=== PATIENT | female | born 1955 | race Caucasian/White ===

== ENCOUNTER → 2022-02-26 11:22 | Outpatient (CLI) | payer BC, SELFPAY ==
--- NOTE | ~2022-02-26 | MM_ITS ---
EXAMINATION: MM screening santos BI w pili HISTORY: Screening TECHNIQUE: Craniocaudal and mediolateral oblique 3-D tomosynthesis images were obtained and synthetic 2-D images were generated. CAD analysis was submitted and interpreted. COMPARISON: No prior mammogram is available for comparison at this institution. BREAST PARENCHYMAL COMPOSITION: There are scattered areas of fibroglandular density. FINDINGS: There is no evidence of suspicious mass, calcification, or architectural distortion to sugg est malignancy in either breast. There has been no suspicious interval change. IMPRESSION: 1. No mammographic evidence of malignancy. 2. Recommend routine screening mammography in one year. BI-RADS Category 1: Negative Reviewed, dictated and finalized at location A. UNITY ASSISTANT
== END ==
PROVIDERS: PCP Family Medicine
DX: Z12.31 Encounter for screening mammogram for malignant neoplasm of breast (principal)
CPT/HCPCS: 77063; 77067

== ENCOUNTER → 2022-03-13 08:47 | Outpatient (CLI) | payer BC, SELFPAY ==
--- NOTE | ~2022-03-13 | DEXA_ITS ---
Bone Density Report Name: RILEY SNELL Age: 66 Sex: Female Ethnicity: White Date of : 1955 Indication: postmenopausal; screening for osteoporosis; height loss; Referring Provider: VALERIE MCKENZIE Study: Bone densitometry was performed. Exam Date: March 13, 2022 Accession number: [id number] Bone Density: Region BMD T-score Z-score Classification AP Spine (L1-L4) 0.966 -0.7 1.0 Normal Femoral Neck (Left) 0.792 -0.5 1.0 Normal Total Hip (Left) 1.062 1.0 2.2 Normal Femoral Neck (Right) 0.905 0.5 2.0 Normal Total Hip (Right) 1.069 1.0 2.3 Normal Total Hip Mean 1.066 1.0 2.3 Normal World Health Organization criteria for BMD impression classify patients as: Normal (T-score at or above -1.0), Osteopenia (T-score between -1.0 and -2.5), or Osteoporosis (T-score at or below -2.5). 10-year Fracture Risk: FRAX not reported because: All T-scores for Spine Total, Hip Total, Femoral Neck at or above -1.0 Clinical Information Provided by Patient: Has 3 or more alcoholic drinks per day Has used the following medications: Calcium Patient maximum height was 64 Menopause Age: 52 No regular weight bearing exercise Drinks caffeinated beverages Onset of menses at age 15 Number of children 2 Impression: The patient has normal bone mass. The patient has risk factors, including: excessive alcohol use. Discussion: BONE DENSITY IS ABOVE THE MINIMUM DESIRABLE LEVEL AT ALL SKELETAL SITES TESTED. This patient?s bone mineral density is above the minimum desirable level (T-score -1.0 or better) at all sites measured. The patient should follow a healthful lifestyle (good nutrition with adequate calcium and vitamin D, and appropriate weight-bearing exercise). Follow-Up: Consider repeating this study in 5 years or sooner if there is some new clinical indication. Reported by: [facility] on 03/13/2022 9:15:00 AM. Reviewed, dictated and finalized at location APreston GARCIA
== END ==
PROVIDERS: PCP Family Medicine; Visit Provider Family Medicine
DX: Z00.00 Encounter for general adult medical examination without abnormal findings (principal); Z13.820 Encounter for screening for osteoporosis; Z78.0 Asymptomatic menopausal state
CPT/HCPCS: 77080

== ENCOUNTER 2022-03-17 11:37 | Outpatient (CLI) | payer BC, SELFPAY ==
--- NOTE | ~2022-03-17 | XR_ITS ---
EXAMINATION: XR_RIBSBI_CR Exam Date/Time: 03/17/2022 11:42 PORCELAIN BUILDUP ASSISTANT HISTORY: fall 3 days ago, bilateral lower rib pain Comparison: None available. RESULT: Lines, tubes, and devices: None. Lungs and pleura: Senescent change. Biapical pleural thickening with pleural calcification. Cardiothymic silhouette: Unremarkable. Other: Nondisplaced right anterior seventh and eighth rib fractures. Subtle, minimally angulated lef t anterior sixth rib fracture. No acute upper abdominal finding. Calcified splenic artery aneurysm. IMPRESSION: Subtle, minimally angulated left anterior sixth rib fracture. Nondisplaced right anterior seventh and eighth rib fractures. Reviewed, dictated and finalized at location K. ELAIN BUILDUP ASSISTANT IMPRESSION: Subtle, minimally angulated left anterior sixth rib fracture. Nondisplaced righ t anterior seventh and eighth rib fractures.
== END 2022-03-17 11:38 | disposition home or self-care (01) ==
PROVIDERS: PCP Family Medicine; Visit Provider Family Medicine
DX: S22.43XA Multiple fractures of ribs, bilateral, initial encounter for closed fracture (principal); X58.XXXA Exposure to other specified factors, initial encounter
CPT/HCPCS: 71110

== ENCOUNTER 2022-04-25 08:01 | Outpatient (CLI) | payer BC, SELFPAY ==
[2022-04-25 19:22] LABS: Basophils Absolute Auto 0.1 K/mm3 (0.0-0.1); Basophils Percent Auto 0.8 % (0.2-1.2); Eosinophils Absolute Auto 0.2 K/mm3 (0-0.3); Eosinophils Percent Auto 3.7 % (0-4.4); Hematocrit 41.9 % (37.0-47.0); Hemoglobin 13.8 g/dL (12.0-15.0); Immature Granulocyte Absolute 0.01 K/mm3 (0.00-0.031); Immature Granulocyte Percent A 0.2 % (0-0.5); Lymphocytes Absolute Auto 1.65 K/mm3 (0.9-3.2); Lymphocytes Percent Auto 25.6 % (18.3-44.2); Mean Corpuscular HGB Conc 32.9 g/dl (32-36); Mean Corpuscular Hemoglobin 31.9 pg (26-34); Mean Platelet Volume 9.7 fl (7.4-10.4); Monocytes Absolute Auto 0.5 K/mm3 (0.1-0.6); Monocytes Percent Auto 8.2 % (2.6-8.5); Neutrophils Percent Auto 61.5 % (45.5-73.1); Platelet Count Result 255 k/mm3 (150-375); Red Blood Count 4.32 M/mm3 (4.2-5.4); Red Cell Distribution Width 13.2 % (11.5-14.5); White Blood Count 6.5 K/mm3 (4.5-10.0)
[2022-04-25 19:45] LABS: Alanine Aminotransferase 25 U/L (6-35); Albumin Level 4.5 g/dL (3.5-5.1); Alkaline Phosphatase 80 U/L (38-126); Anion Gap 7 mmol/L (8-16); Aspartate Amino Transferase 37 U/L (14-36); Bilirubin,Total 0.6 mg/dL (0.2-1.3); Blood Urea Nitrogen 19 mg/dL (7-17); Calcium 9.2 mg/dL (8.4-10.2); Carbon Dioxide 29 mmol/L (22-30); Chloride 98 mmol/L (98-107); Cholesterol 185 mg/dL (0-200); Estimated Glomerular Filt Rate > 60; Glucose 99 mg/dL (65-110); HDL Direct 66 mg/dL; Sodium 134 mmol/L (137-145); Triglycerides 159 mg/dL (<150)
[2022-04-25 19:55] LABS: LDL Cholesterol Direct 68 mg/dL
== END 2022-04-25 08:02 | disposition home or self-care (01) ==
LOC: ANHBWCLAB 08:04
PROVIDERS: PCP Family Medicine; Visit Provider Family Medicine
DX: Z00.00 Encounter for general adult medical examination without abnormal findings (principal)
CPT/HCPCS: 36415; 80053; 80061; 85025

== ENCOUNTER 2023-03-11 08:16 | Outpatient (CLI) | payer BC, SELFPAY ==
--- NOTE | ~2023-03-11 | XR_ITS ---
XR chest 2V DATE: 03/11/2023 08:28 INDICATION: Cough TECHNIQUE: PA and lateral views COMPARISON: None FINDINGS: Borderline heart size. Mild aortic unfolding. No hilar or mediastinal enlargement. There is mild bilateral apical capping. No pulmonary infiltrate or consolidation, pleural effusion or pulmonary vascular congestion or pneumothorax is detected. There is minimal thoracic dextroscoliosis. IMPRESSION: Borderline heart size No active pulmonary disease Reviewed, dictated and finalized at location B. TIONSHIP ADVISOR
[2023-03-11 19:45] LABS: Basophils Percent Auto 0.6 % (0.2-1.2); Eosinophils Absolute Auto 0.3 K/mm3 (0-0.3); Eosinophils Percent Auto 4.5 % (0-4.4); Hematocrit 40.1 % (37.0-47.0); Hemoglobin 13.1 g/dL (12.0-15.0); Immature Granulocyte Absolute 0.01 K/mm3 (0.00-0.031); Immature Granulocyte Percent A 0.1 % (0-0.5); Mean Corpuscular HGB Conc 32.7 g/dl (32-36); Mean Corpuscular Hemoglobin 32.2 pg (26-34); Mean Corpuscular Volume 98.5 fl (80-100); Mean Platelet Volume 9.3 fl (7.4-10.4); Monocytes Absolute Auto 0.6 K/mm3 (0.1-0.6); Monocytes Percent Auto 8.2 % (2.6-8.5); Neutrophils Absolute Auto 4.2 K/mm3 (1.3-6.7); Neutrophils Percent Auto 59.6 % (45.5-73.1); Platelet Count Result 317 k/mm3 (150-375); Red Blood Count 4.07 M/mm3 (4.2-5.4); Red Cell Distribution Width 13.1 % (11.5-14.5); White Blood Count 7.1 K/mm3 (4.5-10.0)
[2023-03-11 20:39] LABS: Alanine Aminotransferase 24 U/L (6-35); Albumin Level 4.4 g/dL (3.5-5.1); Alkaline Phosphatase 70 U/L (38-126); Anion Gap 11 mmol/L (8-16); Aspartate Amino Transferase 46 U/L (14-36); Bilirubin,Total 0.4 mg/dL (0.2-1.3); Blood Urea Nitrogen 20 mg/dL (7-17); Calcium 9.9 mg/dL (8.4-10.2); Carbon Dioxide 27 mmol/L (22-30); Chloride 100 mmol/L (98-107); Cholesterol 181 mg/dL (0-200); Estimated Glomerular Filt Rate > 60; Glucose 86 mg/dL (65-110); HDL Direct 71 mg/dL; Potassium 4.7 mmol/L (3.4-5.0); Sodium 138 mmol/L (137-145); Triglycerides 201 mg/dL (<150)
[2023-03-11 20:51] LABS: LDL Cholesterol Direct 65 mg/dL
== END 2023-03-11 08:17 | disposition home or self-care (01) ==
LOC: ANHBWCLAB 08:17
PROVIDERS: PCP Nurse Practitioner Adult Health; Visit Provider Nurse Practitioner Adult Health
DX: I10 Essential (primary) hypertension (principal); R05.9 Cough, unspecified
CPT/HCPCS: 36415; 71046; 80053; 80061; 83735; 84443; 85025

== ENCOUNTER → 2023-04-03 15:51 | Outpatient (CLI) | payer BC, SELFPAY ==
--- NOTE | ~2023-04-03 | MM_ITS ---
EXAMINATION: MM screening santos BI w pili HISTORY: Screening TECHNIQUE: Craniocaudal and mediolateral oblique 3-D tomosynthesis images were obtained and synthetic 2-D images were generated. CAD analysis was submitted and interpreted. COMPARISON: 02/26/2022 BREAST PARENCHYMAL COMPOSITION: There are scattered areas of fibroglandular density. FINDINGS: There is no evidence of suspicious mass, calcification, or architectural distortion to sugg est malignancy in either breast. There has been no suspicious interval change. IMPRESSION: 1. No mammographic evidence of malignancy. 2. Recommend routine screening mammography in one year. BI-RADS Category 1: Negative Reviewed, dictated and finalized at location A. CH MAKER
== END ==
PROVIDERS: PCP Family Medicine; Visit Provider Family Medicine
DX: Z12.31 Encounter for screening mammogram for malignant neoplasm of breast (principal)
CPT/HCPCS: 77063; 77067

== ENCOUNTER 2024-04-05 12:41 | Outpatient (CLI) | payer BC, SELFPAY ==
--- NOTE | ~2024-04-05 | MM_ITS ---
EXAMINATION: MM screening santos BI w pili HISTORY: Screening TECHNIQUE: Craniocaudal and mediolateral oblique 3-D tomosynthesis images were obtained and synthetic 2-D images were generated. CAD analysis was submitted and interpreted. COMPARISON: Comparison to multiple prior studies sequentially, with oldest reviewed study dated 02/07. BREAST PARENCHYMAL COMPOSITION: Not dense: There are scattered areas of fibroglandular density. FINDINGS: There is no evidence of suspicious mass, calcification, or architectural distortion to sugg est malignancy in either breast. There has been no suspicious interval change. IMPRESSION: 1. No mammographic evidence of malignancy. 2. Recommend routine screening mammography in one year. BI-RADS Category 1: Negative Reviewed, dictated and finalized at location A. RVISOR DOCK
== END 2024-04-05 12:42 | disposition home or self-care (01) ==
LOC: MICIMG 12:42
PROVIDERS: PCP Nurse Practitioner Adult Health; Visit Provider Nurse Practitioner Adult Health
DX: Z12.31 Encounter for screening mammogram for malignant neoplasm of breast (principal)
CPT/HCPCS: 77063; 77067

== ENCOUNTER 2024-04-13 07:04 | Outpatient (CLI) | payer BC, SELFPAY ==
--- OUTSIDE RECORDS SUMMARY | 2024-04-13 07:09 | XMS_ITS | Referral Summary ---
Author Organization [facility] [address] Address [facility] [place] [address] Care Team Providers Care Journeyman Mechanic Name Role Phone Jaden Mcdonald MD Primary Care Provider [phone] Allergies No known active allergies Medications atorvastatin (LIPITOR) 20 mg tablet Take 20 mg by mouth daily 2 Active triamterene-hydr oCHLOROthiazide 37.5-25 mg per tablet Take 1 tablet/capsule by mouth daily 2 Active methylPREDNISolo ne (Medrol, Adam,) 4 mg DosepackIndicati ons:Non-recurren t acute suppurative otitis media of right ear without spontaneous rupture of tympanic membrane follow package directions 1 packet 2 Active fluticasone propionate (FLONASE) 50 mcg/actuation nasal sprayIndications :Right acute serous otitis media, recurrence not specified Administer 2 sprays into each nostril daily 1 each 2 Active loratadine (CLARITIN) 10 mg tabletIndication s:Right acute serous otitis media, recurrence not specified Take 1 tablet (10 mg total) by mouth daily as needed for allergies 30 tablet 2 Active Active Problems No known active problems Immunizations Name Administration Dates Next Due Influenza, Quadrivalent, Ginger l Culture-based MDCK, Preservative Free, Antibiotic Free, Intramuscular 12/02/2021 Social History Tobacco Use Types Packs/Day Years Used Date Smoking Tobacco: Never Smokeless Tobacco: Never Tobacco Cessation:Counseling Given: Not Answered Personal Safety Answer Date Recorded Getting School Help Needed Not on file 03/30 Comments Unknown Sex and Gender Information Value Date Recorded Sex Assigned at Not on file Legal Sex Female 8:14 AM HAND CARVER Gender Identity Not on file Sexual Orientation Not on file Last Filed Vital Signs Vital Sign Reading Time Taken Comments Blood Pressure 144/88 02/12/2022 2:21 PM HAND CARVER Pulse 92 02/12/2022 2:21 PM HAND CARVER Temperature 36.9 ??C (98.4 ??F) 02/12/2022 2:21 PM CS T Respiratory Rate 16 02/12/2022 2:21 PM HAND CARVER Oxygen Saturation 96% 02/12/2022 2:21 PM HAND CARVER Inhaled Oxygen Concentration - - Weight 92.1 kg (203 lb) 02/12/2022 2:21 PM HAND CARVER Height 162.6 cm (5' 4 ) 02/12/2022 2:21 PM HAND CARVER Body Mass Index 34.84 02/12/2022 2:21 PM HAND CARVER Plan of Treatment Not on file Insurance [id number] OOS magnify360 OOS Care Teams Journeyman Mechanic Relationship Specialty Start Date End Date Jaden Mcdonald MD PCP - General Family Practice 02/12/22
--- OUTSIDE RECORDS SUMMARY | 2024-04-13 07:09 | XMS_ITS | Continuity of Care Document ---
Author Organization [facility] o Address [address] [place] [address] Phone Care Team Providers Care Sfdc Solution Architect Name Role Phone Soraya Sainz PT Unavailable Unavailabl e Medications Medication Instructions Dosage Effective Dates (start - stop) Status Comments meloxicam 15 mg tablet take 1 tablet by oral route every day 15 MG - Active Procedures Procedure Date Physical Tx excercises, ea 15 min Neuromuscular re-edu, ea15 min 19 Physical Tx excercises, ea 15 min Neuromuscular re-edu, ea15 min 19 Physical Tx excercises, ea 15 min Neuromuscular re-edu, ea15 min 19 PT EVAL LOW COMPLEX 20 MIN Physical Tx excercises, ea 15 min PT EVAL LOW COMPLEX 20 MIN Physical Tx excercises, ea 15 min Office/outpatient visit,new, mod 2018 X-ray exam lower spine 2-3 views 2018 Advance Directives Directive Yes / No Effective Date File Name No Information Encounters Encounter Description Practice Location Reason(s) For Visit Diagnoses Date Provider Providers Copied on Encounter [facility] [place], [facility] [address] [facility], [place], [address], [place] tel:[phone] 00 [facility] No Information Nov- 9 Alistair Lira . [address] [facility], [address], [place], [id number] , [place]. tel:[phone] Referring Provider: Robbkings Armenta, [address], [place], [address] . tel:[phone] [facility], [address], [place], [place], [facility], tel:[phone] 00 [facility] [place] No Information Aug-0 9 Alistair Lira . [address], [place], [place], [address] [place] [address] , [place]. tel:[phone] Referring Provider: Robbkings Armenta, [address], [place], [address] . tel:[phone] [facility], [address], [place], [place], [facility], tel:[phone] 00 [facility] [place] No Information Aug-0 9 Alfredo Priti. [address] [place], [place], [facility], . tel:[phone] Referring Provider: Robb Zach Armenta, [address], [place], [address] . tel:[phone] [facility], [address], [place], [place], [facility], tel:[phone] [facility] No Information Aug-0 9 Alfredo Priti. [address] [place], [place], [facility], . tel:[phone] Referring Provider: Robb Zach Armenta, [address], [place], [address] . tel:[phone] [facility], [address], [place], [place], [facility], [place] tel:[phone] 00 [facility] No Information Aug-0 9 Alfredo Priti. [address] [place], [address], . tel:[phone] Referring Provider: Robb Armenta, [address], [place], [address] . tel:[phone] [facility], [address] [place], [address], [place] tel:[phone] 00 [facility] No Information 9 Alfredo Marcos. [address] [place], [place], [facility], [place]. tel:[phone] Referring Provider: Robb Armenta, [address] [facility] [place], [address] . tel:[phone] Office/outpat ient visit,[facility], [address] [place], [address], [place] tel:[phone] 00 [facility] No Information 9 Paloma Thomas. [address] [place], [place], [id number] , [place]. tel:[phone] Referring Provider: Robb Armenta, [facility] [place], [address] . tel:[phone] Family History Family Member Type Diagnosis Age At Onset No Information Payers Payer name Insurance type Covered constitution party ID Authorviktoriyaa janice(s) [place] - [address] [id number] Social History Type Description Quantity Date Captured Comments Sex Female Smoking Status No Information Chief Complaint And Reason For Visit No Information Reason For Referral Reason For Referral No Information History Of Present Illness Encounter Date Complaint History Of Prese nt Illness No Information Functional Status Date Functional Assessmen t No Information Instructions Date Instruction Additional Infor mation No Information Assessments Type Assessment Date No Information Patient Care Teams Name Effective Dates (start - stop) Status Members No Information
--- OUTSIDE RECORDS SUMMARY | 2024-04-13 07:09 | XMS_ITS | Clinical Summary ---
Author Organization [facility] [address] Address [address] [place] [address] Care Team Providers Care Cotton Farmer Name Role Phone Jaden Mcdonald MD Primary Care Provider [phone] Allergies No known active allergies Medications atorvastatin [...] on file Legal Sex Female 8:14 AM BREEDING MANAGER Gender Identity Not on file Sexual Orientation Not on file Obstetrics History Last Filed Vital Signs Vital Sign Reading Time Taken Comments Blood Pressure 144/88 02/12/2022 2:21 PM BREEDING MANAGER Pulse 92 02/12/2022 2:21 PM BREEDING MANAGER Temperature 36.9 ??C (98.4 ??F) 02/12/2022 2:21 PM CS T Respiratory Rate 16 02/12/2022 2:21 PM BREEDING MANAGER Oxygen Saturation 96% 02/12/2022 2:21 PM BREEDING MANAGER Inhaled Oxygen Concentration - - Weight 92.1 kg (203 lb) 02/12/2022 2:21 PM BREEDING MANAGER Height 162.6 cm (5' 4 ) 02/12/2022 2:21 PM BREEDING MANAGER Body Mass Index 34.84 02/12/2022 2:21 PM BREEDING MANAGER Plan of Treatment Health Maintenance Due Date Last Done Comments Breast Cancer Screening-Mammogram 1955 Colon Cancer Screening-Colonoscopy 1955 Depression Screening 1955 Fall Risk Assessment 1955 Hepatitis C Screening 1955 Osteoporosis Screening-Bone Density Scan 1955 DTaP/Tdap/Td Vaccine (1 - Tdap) 1968 Hepatitis B Screening 1975 Zoster Vaccine (1 of 2) 2007 Pneumococcal vaccine 65+ (1 of 1 - PCV) 2022 Well Visit 65+ 2022 Covid-19 Vaccine (2 - season) 2023 Influenza Vaccine (#1) 2023 12/02/2021 Insurance [employer] OOS [employer] OOS Care Teams Cotton Farmer Relationship Specialty Start Date End Date Jaden Mcdonald MD PCP - General Family Practice 02/12/22
[2024-04-13 18:19] LABS: Basophils Absolute Auto 0.1 K/mm3 (0.0-0.1); Basophils Percent Auto 0.8 % (0.2-1.2); Eosinophils Absolute Auto 0.4 K/mm3 (0-0.3); Eosinophils Percent Auto 6.4 % (0-4.4); Hematocrit 40.6 % (37.0-47.0); Hemoglobin 13.2 g/dL (12.0-15.0); Immature Granulocyte Absolute 0.02 K/mm3 (0.00-0.031); Immature Granulocyte Percent A 0.3 % (0-0.5); Lymphocytes Absolute Auto 1.88 K/mm3 (0.9-3.2); Lymphocytes Percent Auto 29.6 % (18.3-44.2); Mean Corpuscular HGB Conc 32.5 g/dl (32-36); Mean Corpuscular Volume 98.3 fl (80-100); Mean Platelet Volume 9.3 fl (7.4-10.4); Monocytes Absolute Auto 0.5 K/mm3 (0.1-0.6); Neutrophils Absolute Auto 3.5 K/mm3 (1.3-6.7); Neutrophils Percent Auto 54.9 % (45.5-73.1); Platelet Count Result 293 k/mm3 (150-375); Red Blood Count 4.13 M/mm3 (4.2-5.4); Red Cell Distribution Width 13.1 % (11.5-14.5); White Blood Count 6.4 K/mm3 (4.5-10.0)
[2024-04-13 19:03] LABS: Alanine Aminotransferase 27 U/L (6-35); Albumin Level 4.2 g/dL (3.5-5.1); Alkaline Phosphatase 71 U/L (38-126); Anion Gap 14 mmol/L (4-12); Aspartate Amino Transferase 54 U/L (14-36); Bilirubin,Total 0.5 mg/dL (0.2-1.3); Blood Urea Nitrogen 16 mg/dL (7-17); Calcium 9.4 mg/dL (8.4-10.2); Carbon Dioxide 23 mmol/L (22-30); Chloride 100 mmol/L (98-107); Cholesterol 159 mg/dL (0-200); Estimated Glomerular Filt Rate > 60; Glucose 78 mg/dL (65-110); HDL Direct 61 mg/dL; Potassium 4.2 mmol/L (3.4-5.0); Sodium 137 mmol/L (137-145); Triglycerides 227 mg/dL (<150)
[2024-04-13 19:13] LABS: LDL Cholesterol Direct 56 mg/dL
== END 2024-04-13 07:05 | disposition home or self-care (01) ==
LOC: ANHBWCLAB 07:07
PROVIDERS: PCP Nurse Practitioner Adult Health; Visit Provider Nurse Practitioner Adult Health
DX: I10 Essential (primary) hypertension (principal)
CPT/HCPCS: 36415; 80053; 80061; 85025

== ENCOUNTER 2024-04-27 11:32 | Outpatient (CLI) | payer BC, SELFPAY ==
--- NOTE | ~2024-04-27 | XR_ITS ---
Left Knee Technique: AP, lateral, and sunrise views were obtained. Clinical History: Pain Findings: No fracture or dislocation is seen. Osseous alignment is anatomic. There is mild to moderat e tricompartmental degenerative change. Soft tissues are unremarkable. No joint effusion is seen. Impression: Degenerative change, as above. Reviewed, dictated and finalized at location M. RAL PRE ARRANGEMENT SPECIALIST Impression: Degenerative change, as above.
--- OUTSIDE RECORDS SUMMARY | 2024-04-27 11:36 | XMS_ITS | Referral Summary ---
Author Organization [facility] [address] Address [facility] [place] [address] Care Team Providers Care Window Shade Estimator Name Role Phone Jaden Mcdonald MD Primary Care Provider [phone] Allergies No known active allergies Medications atorvastatin [...] Active Problems No known active problems Immunizations Immunization Administration Dates Next Due Influenza, Quadrivalent, Ginger [...] on file Legal Sex Female 8:14 AM PRODUCT CONTROL AND LOGISTICS ANALYST Gender Identity Not on file Sexual Orientation Not on file Last Filed Vital Signs Vital Sign Reading Time Taken Comments Blood Pressure 144/88 02/12/2022 2:21 PM PRODUCT CONTROL AND LOGISTICS ANALYST Pulse 92 02/12/2022 2:21 PM PRODUCT CONTROL AND LOGISTICS ANALYST Temperature 36.9 C (98.4 F) 02/12/2022 2:21 PM PRODUCT CONTROL AND LOGISTICS ANALYST Respiratory Rate 16 02/12/2022 2:21 PM PRODUCT CONTROL AND LOGISTICS ANALYST Oxygen Saturation 96% 02/12/2022 2:21 PM PRODUCT CONTROL AND LOGISTICS ANALYST Inhaled Oxygen Concentration - - Weight 92.1 kg (203 lb) 02/12/2022 2:21 PM PRODUCT CONTROL AND LOGISTICS ANALYST Height 162.6 cm (5' 4 ) 02/12/2022 2:21 PM PRODUCT CONTROL AND LOGISTICS ANALYST Body Mass Index 34.84 02/12/2022 2:21 PM PRODUCT CONTROL AND LOGISTICS ANALYST Plan of Treatment Not on file Insurance [employer] OOS [employer] OOS Care Teams Window Shade Estimator Relationship Specialty Start Date End Date Jaden Mcdonald MD PCP - General Family Practice 02/12/22
--- OUTSIDE RECORDS SUMMARY | 2024-04-27 11:36 | XMS_ITS | Clinical Summary ---
Author Organization [facility] [address] Address [address] [place] [address] Care Team Providers Care Payroll Supervisor Name Role Phone Jaden Mcdonald MD Primary Care Provider [phone] Allergies No known active allergies Medications atorvastatin [...] on file Legal Sex Female 8:14 AM ELECTRIC SPOT WELDER Gender Identity Not on file Sexual Orientation Not on file Obstetrics History Last Filed Vital Signs Vital Sign Reading Time Taken Comments Blood Pressure 144/88 02/12/2022 2:21 PM ELECTRIC SPOT WELDER Pulse 92 02/12/2022 2:21 PM ELECTRIC SPOT WELDER Temperature 36.9 C (98.4 F) 02/12/2022 2:21 PM ELECTRIC SPOT WELDER Respiratory Rate 16 02/12/2022 2:21 PM ELECTRIC SPOT WELDER Oxygen Saturation 96% 02/12/2022 2:21 PM ELECTRIC SPOT WELDER Inhaled Oxygen Concentration - - Weight 92.1 kg (203 lb) 02/12/2022 2:21 PM ELECTRIC SPOT WELDER Height 162.6 cm (5' 4 ) 02/12/2022 2:21 PM ELECTRIC SPOT WELDER Body Mass Index 34.84 02/12/2022 2:21 PM ELECTRIC SPOT WELDER Plan of Treatment Health Maintenance Due Date [...] 2023 Influenza Vaccine (#1) 2023 12/02/2021 Insurance [facility] OOS BLUE ACCESS OOS Care Teams Payroll Supervisor Relationship Specialty Start Date End Date Jaden Mcdonald MD PCP - General Family Practice 02/12/22
--- OUTSIDE RECORDS SUMMARY | 2024-04-27 11:36 | XMS_ITS | Continuity of Care Document ---
Author Organization [facility] o Address [address] [place] [address] Phone Care Team Providers Care Credit Investigator Name Role Phone Soraya Sainz PT Unavailable [...] Provider Providers Copied on Encounter [facility] [place], [facility], [place], [address], [place] tel:[phone] 00 [facility] No Information Nov- 9 Alistair Lira . [address] [facility], [address], [place], [id number] , [place]. tel:[phone] Referring Provider: Robbkings Armenta, [address], [place], [address] . tel:[phone] [facility] [place], [address], [place], [place], [facility], tel:[phone] 00 [facility] No Information Aug-0 9 Alistair Lira . [address], [place], [place], [address] [place] [address] , [place]. tel:[phone] Referring Provider: Robbkings Armenta, [address], [place], [address] . tel:[phone] [facility], [address], [place], [place], [facility], tel:[phone] 00 [facility] No Information Aug-0 9 Alfredo Priti. [address] [place], [place], [facility], . tel:[phone] Referring Provider: Robb Zach Armenta, [address], [place], [address] . tel:[phone] [facility], [address], [place], [place], [facility], tel:[phone] 00 [facility] No Information Aug-0 9 Alfredo Priti. [address] [place], [place], [facility], . tel:[phone] Referring Provider: Robb Zach Armenta, [address], [place], [address] . tel:[phone] [facility], [address], [place], [place], [facility], [place] tel:[phone] [facility] No Information Aug-0 9 Alfredo Priti. [address] [place], [address], . tel:[phone] Referring Provider: Robb Armenta, [address], [place], [address] . tel:[phone] [facility], [address] [place], [address], [place] tel:[phone] 00 [facility] No Information 9 Alfredo Marcos. [address] [place], [place], [facility], [place]. tel:[phone] Referring Provider: Robb Armenta, [address] [facility] [place], [address] . tel:[phone] Office[facility]outpat ient visit,[facility], [address] [place], [address], [place] tel:[phone] 00 [facility] No Information 9 Paloma Thomas. [address] [place], [place], [id number] , [place]. tel:[phone] Referring Provider: Robb Armenta, [facility] [place], [address] . tel:[phone] Family History Family Member Type Diagnosis Age At Onset No Information Payers Payer name Insurance type Covered democrat ID Authorviktoriyaa janice(s) [place] - [address] [id number] Social History Type Description Quantity Date Captured [...]
== END 2024-04-27 11:33 | disposition home or self-care (01) ==
LOC: ANHBWCLAB 11:34
PROVIDERS: PCP Nurse Practitioner Adult Health; Visit Provider Nurse Practitioner Adult Health
DX: M17.12 Unilateral primary osteoarthritis, left knee (principal)
CPT/HCPCS: 73562

== ENCOUNTER 2024-09-20 08:03 | Outpatient (CLI) | payer BC, SELFPAY ==
--- OUTSIDE RECORDS SUMMARY | 2024-09-20 08:11 | XMS_ITS | Continuity of Care Document ---
Author Organization [facility] o Address [address] [place] [address] Phone Care Team Providers Care [facility] Assistant Director Name Role Phone Soraya Sainz PT Unavailable [...] Provider Providers Copied on Encounter [facility] [place], [facility] [address] [facility], [place], [address], [place] tel:[phone] 00 [facility] No Information Nov-201 9 Alistair Lira . [address] [facility], [address], [place], [id number] , [place]. tel:[phone] Referring Provider: Robbkings Armenta, [address], [place], [address] . tel:[phone] [facility] [place], [address], [place], [place], [facility], tel:[phone] [employer] [place] No Information Aug-0 9 Alistair Lira . [address], [place], [place], [address] [place] [address] , [place]. tel:[phone] Referring Provider: Robbkings Armenta, [address], [place], [address] . tel:[phone] [facility], [address], [place], [place], [facility], tel:[phone] [place] No Information Aug-0 9 Alfredo Priti. [address] [place], [place], [facility], . tel:[phone] Referring Provider: Robb Zach Armneta, [address], [place], [address] . tel:[phone] [facility], [address], [place], [place], [facility], tel:[phone] [employer] [facility] No Information Aug-0 9 Alfredo Priti. [address], [place], [facility], . tel:[phone] Referring Provider: Robb Zach Armenta, [address], [place], [address] . tel:[phone] [facility], [address], [place], [place], [facility], [place] tel:[phone] [place] [facility] No Information Aug-0 9 Alfredo Priti. [address] [place], [address], . tel:[phone] Referring Provider: Robb Armenta, [address], [place], [address] . tel:[phone] [facility], [address] [place], [address], [place] tel:[phone] 00 [place] [facility] No Information 9 Alfredo Marcos. [address] [place], [place], [facility], [place]. tel:[phone] Referring Provider: Robb Armenta, [address] [facility], [address] . tel:[phone] Office/outpat ient visit,[facility], [address] [place], [address], [place] tel:[phone] [place] [facility] No Information 9 Paloma Thomas. [address] [place], [place], [id number] , [place]. tel:[phone] Referring Provider: Robb Armenta, [facility] [place] [place], [address] . tel:[phone] Family History Family Member Type Diagnosis Age At Onset No Information Payers Payer name Insurance type Covered constitution party ID Authorviktoriyaa janice(s) [place] - [id number] Social History Type Description Quantity Date Captured [...]
--- OUTSIDE RECORDS SUMMARY | 2024-09-20 08:11 | XMS_ITS | Clinical Summary ---
Author Organization [facility] [address] Address [address] [place] [id number] Care Team Providers Care Party Plan Sales Director Name Role Phone Jaden Mcdonald MD Primary Care Provider [phone] Allergies No known active allergies Medications atorvastatin [...] on file Legal Sex Female 8:14 AM RESIN MAKER Gender Identity Not on file Sexual Orientation Not on file Obstetrics History Last Filed Vital Signs Vital Sign Reading Time Taken Comments Blood Pressure 144/88 02/12/2022 2:21 PM RESIN MAKER Pulse 92 02/12/2022 2:21 PM RESIN MAKER Temperature 36.9 C (98.4 F) 02/12/2022 2:21 PM RESIN MAKER Respiratory Rate 16 02/12/2022 2:21 PM RESIN MAKER Oxygen Saturation 96% 02/12/2022 2:21 PM RESIN MAKER Inhaled Oxygen Concentration - - Weight 92.1 kg (203 lb) 02/12/2022 2:21 PM RESIN MAKER Height 162.6 cm (5' 4) 02/12/2022 2:21 PM RESIN MAKER Body Mass Index 34.84 02/12/2022 2:21 PM RESIN MAKER Plan of Treatment Health Maintenance Due Date Last Done Comments Breast Cancer Screening-Mammogram 1957 Colon Cancer Screening-Colonoscopy 1957 Depression Screening 1957 Fall Risk Assessment 1957 Hepatitis C Screening 1957 Osteoporosis Screening-Bone Density Scan 1957 DTaP/Tdap/Td Vaccine (1 - Tdap) 1968 Hepatitis B Screening 1975 Pneumococcal vaccine 65+ (1 of 1 - PCV) 2007 Zoster Vaccine (1 of 2) 2007 Well Visit 65+ 2022 Covid-19 Vaccine (2 - season) 2023 Influenza Vaccine (Season Ended) 2024 12/03/19 22 [place] [address] [facility] OOS BLUE ACCESS OOS Care Teams Party Plan Sales Director Relationship Specialty Start Date End Date Jaden Mcdonald MD PCP - General Family Practice 02/12/22
--- OUTSIDE RECORDS SUMMARY | 2024-09-20 08:11 | XMS_ITS | Referral Summary ---
Author Organization [facility] [address] Address [facility] [place] [address] Care Team Providers Care Kitchen Operator Name Role Phone Jaden Mcdonald MD Primary Care Provider [phone] Allergies No known active allergies Medications atorvastatin [...] on file Legal Sex Female 8:14 AM SASH FINISHER Gender Identity Not on file Sexual Orientation Not on file Last Filed Vital Signs Vital Sign Reading Time Taken Comments Blood Pressure 144/88 02/12/2022 2:21 PM SASH FINISHER Pulse 92 02/12/2022 2:21 PM SASH FINISHER Temperature 36.9 C (98.4 F) 02/12/2022 2:21 PM SASH FINISHER Respiratory Rate 16 02/12/2022 2:21 PM SASH FINISHER Oxygen Saturation 96% 02/12/2022 2:21 PM SASH FINISHER Inhaled Oxygen Concentration - - Weight 92.1 kg (203 lb) 02/12/2022 2:21 PM SASH FINISHER Height 162.6 cm (5' 4) 02/12/2022 2:21 PM SASH FINISHER Body Mass Index 34.84 02/12/2022 2:21 PM SASH FINISHER Plan of Treatment Not on file Insurance [employer] O[employer] Care Teams Kitchen Operator Relationship Specialty Start Date End Date Jaden Mcdonald MD PCP - General Family Practice 02/12/22
[2024-09-20 18:32] LABS: Alanine Aminotransferase 28 U/L (6-35); Albumin Level 4.4 g/dL (3.5-5.1); Alkaline Phosphatase 67 U/L (38-126); Anion Gap 10 mmol/L (4-12); Aspartate Amino Transferase 69 U/L (14-36); Bilirubin,Total 0.5 mg/dL (0.2-1.3); Blood Urea Nitrogen 15 mg/dL (7-17); Calcium 9.5 mg/dL (8.4-10.2); Carbon Dioxide 25 mmol/L (22-30); Chloride 101 mmol/L (98-107); Cholesterol 170 mg/dL (0-200); Estimated Glomerular Filt Rate > 60; Glucose 92 mg/dL (65-110); HDL Direct 59 mg/dL; Potassium 4.4 mmol/L (3.4-5.0); Sodium 136 mmol/L (137-145); Total Protein 7.4 g/dL (6.3-8.2); Triglycerides 177 mg/dL (<150)
== END 2024-09-20 08:04 | disposition home or self-care (01) ==
LOC: ANHBWCLAB 08:05
PROVIDERS: PCP Nurse Practitioner Adult Health; Visit Provider Nurse Practitioner Adult Health
DX: I10 Essential (primary) hypertension (principal)
CPT/HCPCS: 36415; 80053; 80061